=== PATIENT | male | born 1995 | race Caucasian/White ===

== ENCOUNTER 2017-05-08 17:10 | Emergency (ER) | payer BC, OTHER ==
--- NOTE | 2017-05-08 18:35 | UC ---
Complaint Male HPI - HPI Summary HPI Summary: FIVE DAYS OF INTERMITTENT BILATERAL LOW-GRADE TESTICULAR PAIN. NO FEVER. NO TRAUMA. NO SEXUAL ACTIVITY IN 6 YEARS. FOR ONE YEAR HAS HAD INTERMITTENT TINGLING SENSATION IN TIP OF PENIS. NO LESIONS NO DISCHARGE. NO BLOOD IN URINE. NO CHANGES IN MEDICATION. NO ABDOMINAL PAIN. NO NAUSEA NO VOMITING. TESTICLES NONTENDER TO TOUCH. - History of Current Complaint Chief Complaint: UCGU Stated Complaint: TESTICULAR PRESSURE Time Seen by Provider: 05/08/17 17:26 Hx Obtained From: Patient Onset/Duration: Gradual Onset, Lasting Days, Still Present Timing: Intermittent Severity Initially: Mild Severity Currently: Mild Pain Intensity: 2 Pain Scale Used: 0-10 Numeric Location: Testicle - BILATERAL Character: Colicy Aggravating Factor(s): Nothing Alleviating Factor(s): Nothing Associated Signs And Symptoms: Negative: Diaphoresis, Back Pain, Fever, Hematuria, Dysuria, Constipation, Blood in Stool, Rectal Pain, Appetite, Nausea , Penile Swelling, Penile Discharge - Risk Factors Testicular Torsion: Negative - Allergies/Home Medications Allergies/Adverse Reactions: Allergies Allergy/AdvReac Type Severity Reaction Status Date / Time Amoxicillin Allergy Hives Verified 05/08/17 17:19 Cefadroxil [From Duricef] Allergy Hives Verified 05/08/17 17:18 Home Medications: Home Medications NK [No Home Medications Reported] 05/08/17 [History Confirmed 05/08/17] PMH/Surg Hx/FS Hx/Imm Hx Previously Healthy: Yes - Surgical History Surgical History: Yes Surgery Procedure, Year, and Place: hernia - Family History Known Family History: Negative: Renal Disease - Social History Occupation: Employed Full-time Lives: With Family Alcohol Use: None Substance Use Type: None Smoking Status (MU): Never Smoked Tobacco Review of Systems Constitutional: Negative Skin: Negative Eyes: Negative ENT: Negative Respiratory: Negative Cardiovascular: Negative Gastrointestinal: Negative Genitourinary: Other - LOW-GRADE INTERMITTENT BILATERAL TESTICULAR PAIN; INTERMITTENT DENS TINGLING; CURRENTLY ASYMPTOMATIC Motor: Negative Neurovascular: Negative Musculoskeletal: Negative Neurological: Negative Psychological: Negative All Other Systems Reviewed And Are Negative: Yes Physical Exam Triage Information Reviewed: Yes Appearance: Well-Appearing, No Pain Distress, Well-Nourished Vital Signs: Initial Vital Signs Temp 97.9 F 05/08/17 17:14 Pulse 63 05/08/17 17:14 Resp 18 05/08/17 17:14 Pulse Ox 100 05/08/17 17:14 Vital Signs Reviewed: Yes Eye Exam: Normal ENT Exam: Normal Dental Exam: Normal Neck exam: Normal Neck: Positive: Supple, Nontender, No Lymphadenopathy Respiratory Exam: Normal Respiratory: Positive: Chest non-tender, Lungs clear, Normal breath sounds, No respiratory distress, No accessory muscle use Cardiovascular Exam: Normal Cardiovascular: Positive: RRR, No Murmur, Pulses Normal Abdominal Exam: Normal Abdomen Description: Positive: Nontender, No Organomegaly, Soft Musculoskeletal Exam: Normal Neurological Exam: Normal Psychological Exam: Normal Skin Exam: Normal Complaint Male Course/Dx - Course Course Of Treatment: PATIENT IS IN NO ACUTE DISTRESS, WITH NO TESTICULAR TENDERNESS TO PALPATION. ELECTED TO CALL UROLOGY REFERRAL; AND TO FOLLOW UP IMMEDIATELY WITH ED IF PAIN RETURNS, OR IF NEW SYMPTOMS DEVELOP. PATOIENT ADVISED THAT ULTRASOUND NOT AVAILABLE IN URGENT CARE CLINICAL SETTING AT THIS TIME. - Differential Dx/Diagnosis Differential Diagnosis/HQI/PQRI: Epididymitis, Cancer, Incarcerated Hernia, Phimosis, Priaprism, Prostatitis, Pyelonephritis, Testicular Torsion, Ureteral Calculi, Urinary Tract Infection Provider Diagnoses: BILATERAL TESTICULAR PAIN Discharge - Discharge Plan Condition: Stable Disposition: HOME Patient Education Materials: Testicle Pain (ED), Dysuria (ED) Referrals: Josue Rivera MD [Primary Care Provider] - Kirby Sagastume MD [Medical Doctor] - Additional Instructions: CURRENTLY YOU HAVE HAD LOW-GRADE TESTICULAR PAIN FOR FIVE DAYS, AND ARE IN NO ACUTE DISTRESS. YOU HAVE NO BLADDER INFECTION OR BLOOD IN YOUR URINE. YOU HAVE BEEN REFERED TO A UROLOGIST FOR A PROMPT FOLLOW UP. PLEASE SEEK EVALUATION IMMEDIATELY AT THE EMERGENCY DEPARTMENT OF YOUR PAIN CONTINUES, BECOMES MORE SEVERE, OR IF YOU HAVE ANY NEW SYMPTOMS OR IF A FEVER OR ABDOMINAL PAIN DEVELOP.
--- NOTE | 2017-05-10 18:34 | ED ---
Progress - Progress Note Progress Note: CALL PATIENT. G/C NEGATIVE.F/U PCP IF WORSE. Course/Dx - Course Course Of Treatment: PATIENT IS IN NO ACUTE DISTRESS, WITH NO TESTICULAR TENDERNESS TO PALPATION. ELECTED TO CALL UROLOGY REFERRAL; AND TO FOLLOW UP IMMEDIATELY WITH ED IF PAIN RETURNS, OR IF NEW SYMPTOMS DEVELOP. PATOIENT ADVISED THAT ULTRASOUND NOT AVAILABLE IN URGENT CARE CLINICAL SETTING AT THIS TIME. - Diagnoses Provider Diagnoses: STD (male)
== END 2017-05-08 18:25 | disposition home or self-care (01) ==
LOC: UCEAST 17:10
DX: N50.812 Left testicular pain (principal); N50.811 Right testicular pain; Z88.1 Allergy status to other antibiotic agents
CPT/HCPCS: 81003; 87491; 87591; 99201; G0463

== ENCOUNTER 2019-07-22 07:40 | Emergency (ER) | payer OTHER ==
[2019-07-22 07:50] VITALS: BP 129/83
--- NOTE | 2019-07-22 08:24 | UC ---
Head Injury HPI - HPI Summary HPI Summary: 23-year-old male who states on Monday evening he was having some low back pain after he had completed cleaning out a closet. He then stubbed his toe and states that he "saw stars". He was in the bathroom at the time and he states 5 or 10 minutes later he woke up and he was in the bathtub, disoriented and had been incontinent of urine. He did not vomit. He thinks he hit his head because he has a sore spot on his right occiput. Since then he states he is had a mild headache, felt "fuzzy". He went to work today and said he felt "fuzzy" so he came here to be checked. He states no alcohol or drugs were involved. He states that he normally has problems with passing out easily and he has been injured in the past, even with minor injuries. He denies any chronic health problems, no seizure disorders, no cardiac disorders. - History Of Current Complaint Chief Complaint: UCHeadInjury Stated Complaint: PASSED OUT AND HIT HEAD ON MONDAY Time Seen by Provider: 07/22/19 08:05 Hx Obtained From: Patient Onset/Duration: Sudden Onset, Lasting Minutes Severity Currently: Mild Severity Initially: Moderate Pain Intensity: 4 Character: Dull Aggravating Factor(s): Nothing Alleviating Factor(s): Nothing Associated Signs And Symptoms: Positive: LOC (Time In Secs./Mins/Hrs) - Patient thinks he had loss of consciousness for 5-10 minutes. He states he was incontinent of urine., Nausea. Negative: Neck Pain, Vomiting - Allergies/Home Medications Allergies/Adverse Reactions: Allergies Allergy/AdvReac Type Severity Reaction Status Date / Time amoxicillin Allergy Hives Verified 07/22/19 07:51 cefadroxil [From Duricef] Allergy Hives Verified 07/22/19 07:51 PMH/Surg Hx/FS Hx/Imm Hx Previously Healthy: Yes - Surgical History Surgical History: Yes Surgery Procedure, Year, and Place: hernia as a child - Family History Known Family History: Negative: Renal Disease - Social History Occupation: Employed Full-time Alcohol Use: None Substance Use Type: None Smoking Status (MU): Never Smoked Tobacco Review of Systems All Other Systems Reviewed And Are Negative: Yes Musculoskeletal: Positive: Other: - Patient complains of soreness to the right occiput which is where he thinks he may of hit his head on the bathtub. Neurological: Positive: Headache - Patient states he has a mild dull headache. Physical Exam Triage Information Reviewed: Yes Appearance: Well-Appearing, No Pain Distress, Well-Nourished Vital Signs: Initial Vital Signs Temp 99.3 F 07/22/19 07:47 Pulse 69 07/22/19 07:47 Resp 16 07/22/19 07:47 BP 129/83 07/22/19 07:47 Pulse Ox 100 07/22/19 07:47 Vital Signs Reviewed: Yes Eyes: Positive: Conjunctiva Clear - PERRLA, EOMI ENT: Positive: Hearing grossly normal, Pharynx normal, TMs normal, Uvula midline Neck: Positive: Supple, Nontender - C-spine nontender, checked twice, No Lymphadenopathy Respiratory: Positive: Chest non-tender, Lungs clear, Normal breath sounds, No respiratory distress Cardiovascular: Positive: RRR, No Murmur, Pulses Normal, Brisk Capillary Refill Abdomen Description: Positive: Nontender, No Organomegaly, Soft. Negative: CVA Tenderness (R), CVA Tenderness (L), Distended, Guarding, Hepatomegaly, Splenomegaly Bowel Sounds: Positive: Present Musculoskeletal: Positive: Strength Intact, ROM Intact - Good peripheral pulses neuro sensation capillary refill. Good arm and leg strength against resistance. Good Range of motion., No Edema Neurological: Positive: Alert, Muscle Tone Normal - Cranial nerves II through XII are intact, reflexes +2 at the knee, good finger to nose bilaterally, negative Romberg, good [id number] bilaterally, good heel-to-toe forward and backward, normal dystidiokinesis Skin: Positive: Other - Some facial acne. Head Injury Course/Dx - Course Course Of Treatment: EKG: Interpreted by Dr. Castillo CT brain: FINDINGS: The images are degraded by streak artifact. There is no hemorrhagic focus, mass effect or midline shift. The hein-white matter differentiation is grossly maintained without abnormal cerebral edema. The ventricles are of conventional size and configuration. The basal cisterns are patent. There is no abnormal extra axial collection. The globes and orbits are symmetric. The paranasal sinuses and mastoid air cells are predominantly well aerated. IMPRESSION: No acute intracranial abnormality. Patient has been comfortable here with no complaints. I am giving him the number of the sports medicine group to follow up for recheck. He is to call them today and make an appointment. No work until Monday night. 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 Patient has been awake and alert here in no distress and answers questions appropriately. - Differential Dx/Diagnosis Provider Diagnosis: Concussion Discharge ED - Sign-Out/Discharge Documenting (check all that apply): Patient Departure All imaging exams completed and their final reports reviewed: Yes - Discharge Plan Condition: Fair Disposition: HOME Patient Education Materials: Concussion (ED) Forms: *Work Release Referrals: Sonny Whitehead MD [Primary Care Provider] - [facility] [Provider Group] Additional Instructions: Tylenol every 4 hours for headache. Call the sports medicine group today and make an appointment to be seen, they will let you know when. If you have any worsening symptoms, change in her normal mental status, vomiting or worsening headache that you're to go to the emergency room as soon as possible by ambulance. - Billing Disposition and Condition Condition: FAIR Disposition: Home
== END 2019-07-22 09:11 | disposition home or self-care (01) ==
LOC: UCEAST 07:40
DX: S06.0X9A Concussion with loss of consciousness of unspecified duration, initial encounter (principal); Z88.0 Allergy status to penicillin; Z88.1 Allergy status to other antibiotic agents; W22.8XXA Striking against or struck by other objects, initial encounter; Y93.E5 Activity, floor mopping and cleaning; Y92.002 Bathroom of unspecified non-institutional (private) residence as the place of occurrence of the external cause
CPT/HCPCS: 70450; 93005; 99211; G0463